=== PATIENT | female | born 1955 | race Caucasian/White ===

== ENCOUNTER → 2020-12-02 | Outpatient (CLI) | payer OTHER ==
[~2020-12-02] VITALS: Ht 167.6 cm; Wt 68.0 kg
[~2020-12-02] MED LIST: FLEXERIL PO; LOSARTAN POTASS50 MG PO; LYRICA 75 MG CA75 MG PO; TAPAZOLE10 MG PO; TRAMADOL 50 MG50 MG PO; ZOLOFT100 MG PO
[2020-12-02 10:39] VITALS: BP 158/95
--- NOTE | 2020-12-02 11:34 | NUR ---
Pain Clinic Assessment: 1. History of Osteoarthritis: KNEES History of Rheumatoid Arthritis: 2. Height: 5 ft. 6 in. 167.6 cm. Weight: 150.0 lb. oz. 68.040 kg. Patient's BMI: 24.2 3. Vital Signs: BP: 158/95 Pulse: 70 Resp: 14 Temp: 02 Sat: 100 ECG Mon: 4. Pain Intensity: 6 5. Fall Risk: Dizziness: N Needs help standing or walking: N Fallen in the last 3 months: N Fall risk comments: 6. Patient on Blood Thinner: None 7. History of Hypertension: N 8. Opioid Therapy greater than 6 weeks: Opiate Contract Signed: 9. Risk Assessment Tool Provided: 1 LOW RISK 10. Functional Assessment Tool: 11. Recreational Drug Use: Never Drug Type: Tobacco Use: Never Smoker Tobacco Type: Amount or Packs/day: How Many Years: Alcohol Use: Yes Frequency: Weekly Quant: 2
--- NOTE | 2020-12-02 13:39 | NUR ---
Spoke with Katie ARVIZU at Dr. Blanco's office [phone]. Informed that patient was started on Lyrica 75 mg & directions for use. Advised that Dr. Smith recommends Tramadol 50mg increased to 2 tabs TID. Pt will call in the AM regarding script. Pt will f/u with surgeon 12/10/20. Katie verbalized an understanding; advised dictation will follow.
--- NOTE | 2020-12-08 08:17 | HPC ---
[facility] [place] [address] PAIN MANAGEMENT CONSULTATION Name: SHANON ALLEN Linda Room #: REG [facility]#: [id number] Admission: 12/02/20 Attend Phys: Jose Smith DO Discharge: Date of : 51 Report #: [id number] THIS REPORT FOR: cc: Swathi Blanco MD FACS Physician not on staff Jose Smith DO ~ cc: Swathi Blanco MD DATE OF SERVICE: 12/02/2020 REFERRING PHYSICIAN: Swathi Blanco MD CHIEF COMPLAINT: Postoperative pain. HISTORY OF PRESENT ILLNESS: As you know, the patient is a 65-year-old female who has recently undergone abdominal wall reconstruction surgery with Dr. Blanco performed 11/19/2020, 13 days ago. The patient is continuing to experience ongoing pain related to the surgery. She is yet to even have her son removed, which is planned for actually next week. She was referred to our clinic as there was some concern that her use of medication may be inappropriate. Apparently, the patient had surgery a year ago to address similar issues. She had some difficulty with coming off of medications and having difficulty with ongoing pain. The patient was not started on any neuropathic medications prior to surgery to address any post-procedural pain and paresthesias related to peripheral nerve destruction and injury. She originally was given oxycodone per the patient's recollection, 5 mg dose for which she took the medication as directed. She states that she did not feel "normal on that medication and did not wish to continue the treatment", though according to the patient, she did complete the treatment process. Unfortunately, her symptoms continued. She sought evaluation through the surgery team as part of her reevaluation postoperative day 12 where she was given a prescription of tramadol 50 mg up to 3 times a day, but only given 20 tablets. She was complaining of ongoing pain issues and the general surgery team requested that the patient be seen by our clinic to provide some direction from analgesic standpoint and provide consultation and possible suggestions for further treatment to address ongoing symptoms. The patient was referred on to our clinic to discuss those options. The patient reports today her pain is continuous. She describes the pain as shooting, aching, sharp and tender. She is able to localize pain directly over the incision site and the area around the incision sites. There is also some deep pain, likely related to abdominal wall reconstruction. She indicates pain level of 7/10, daily average is 7-8/10, worst pain has been is 9-10/10. The patient indicates pain is exacerbated with bending over, getting in and out of bed or moving in any direction. Pain is improved with heat and cold compresses, ice and previous use of oxycodone. She has been referred to our service to provide a consultation recommendations for postoperative pain. [address] [address] PAIN MANAGEMENT CONSULTATION Name: TIFFANYSHANON D [facility] [id number] Admission: 12/02/20 Attend Phys: Jose Smith DO Discharge: Date of : 51 Report #: [id number] PAST MEDICAL HISTORY: 1. Hypertension. 2. Hypercholesterolemia. 3. Chronic headaches. 4. Urinary incontinence. 5. Chronic low back pain. 6. Thyroid disease. 7. Anxiety disorder. 8. Osteoarthritis. 9. Chronic myofascial pain. PAST SURGICAL HISTORY: 1. section 1979, repeat 1981, repeat 1983, cervical laminectomy 2004, hysterectomy partial 1999, herniorrhaphy 2017, herniorrhaphy 2018 and repeat in 10/2018. 2. Abdominal wall reconstruction 2019. 3. Abdominal wall reconstruction 2020. SOCIAL HISTORY: The patient is a former smoker, reporting that she quit years ago. Denies IV or illicit drug use. Admits to 1-2 alcohol beverages per week. She is retired, retired about 3 years ago. She is not receiving workmen's compensation nor is she trying to obtain disability benefits. Not in litigation in regards to pain, accompanied by her present in room today. REVIEW OF SYSTEMS: Positive for weight change, decrease in appetite, fatigue and weakness, frequent and recurrent headaches, wearing corrective eyewear, cataracts, loss of appetite, nausea, vomiting, abdominal pain secondary to surgery, frequent urination, incontinence or dribbling to urine, varicose veins, rash and itching, frequent and recurrent headaches, memory loss with confusion, depression, thyroid disease, excessive thirst and urination, heat and cold intolerance. All other review of systems negative per 12-point review of systems other than those listed in history of present illness. Pain impact score 51/70 indicating severe interference with daily activities secondary to pain. PQRS: The patient has arthritic changes known of the lumbar spine and knees. No rheumatoid arthritis. She is placing current pain score at 6/10. She is not a fall risk, does not have fall in last 3 months. She is not on blood thinners and is not treated for hypertension, though blood pressure is hypertensive today. She is on opioids for postoperative pain. She has a low opioid addiction potential based on assessment tool. Pain impact again is 51/70, severe interference of daily activities secondary to pain. PHYSICAL EXAMINATION: [facility] [address] [facility] [place] [address] PAIN MANAGEMENT CONSULTATION Name: SHANON ALLEN Room #: [facility]#: [id number] Admission: 12/02/20 Attend Phys: Jose Smith DO Discharge: Date of : 51 Report #: [id number] VITAL SIGNS: Blood pressure 158/95, pulse is 70, respiratory rate 14 and unlabored. The patient is 100% on room air. Height 5 feet 6 inches tall, weight 150 pounds, BMI calculated 24.2. GENERAL: Well-developed, well-nourished, well-hydrated 65-year-old female appearing stated age, pain is rated today at around 6/10. HEENT: Normocephalic, atraumatic. Pupils equal, round and responsive. She is wearing a mask in compliance with COVID-19 regulations. LUNGS: Appear clear. No wheeze or rhonchi. No rales. She is able to complete sentences without difficulty. No audible cough or wheezing. EXTREMITIES: Show no clubbing, no cyanosis and no edema. ABDOMEN: Soft, nondistended. There is tenderness to palpation around the post-surgical sites. [place] remain intact. There is some erythema around the surgical site. There are no rashes, lesions or ulcerations concerning of other etiologies. ASSESSMENT: 1. Postsurgical pain. 2. Pain secondary to abdominal wall reconstruction. PLAN: 1. Based on today's physical exam and history the patient has provided, the description the patient uses in regards to pain, it does appear she is suffering from post-surgical symptoms. She has pain that is more of a burning kind of sensation around the incision, which is consistent with peripheral nerve injury and irritation. She also has a surgical incision site pain, which is typical for abdominal wall reconstruction. The patient is only 13 days post-surgery and is continuing to experience symptoms of discomfort at a level of 6/10. She has yet to even have the son taken out of her incisions and this is causing some irritation as well. We have been requested by the general surgery team to evaluate the patient for appropriateness of treatment. It does appear based on the patient's report that she was on oxycodone post-surgery and this was providing some analgesic benefit, but patient reports that she was feeling "unusual" when she took the medication and did not feel she wanted to continue that therapy. She apparently followed up with surgery team on 12/01/2020 which generated the referral to our clinic to discuss appropriateness of treatment and whether or not we had some further suggestions for therapy. We have discussed with the patient over an hour of time today the options for treatment. The following was suggested as treatment course. 2. We discussed with the patient that patients that have had issues with post-surgical pain in the past, undergoing similar surgeries., we typically would start one on neuropathic medications such as amitriptyline, nortriptyline, Cymbalta or Lyrica. These tend to help reduce the postoperative pain and symptoms from peripheral nerve injury and irritation. Unfortunately, this was not initiated, which I believe is part of the contributing factor to the patient's symptoms. We would recommend starting a neuropathic medication. We recommend either gabapentin or Lyrica. The patient reports that she was on [facility] [address] [place] [address] PAIN MANAGEMENT CONSULTATION Name: SHANON ALLEN Room #: REG CLJuan Chang#: [id number] Admission: 12/02/20 Attend Phys: Jose Smith DO Discharge: Date of : 51 Report #: [id number] gabapentin in the past and believes she may have had some side effects. We will start the patient on Lyrica. We will initiate 75 mg dose p.o. at bedtime for 5 nights. If no improvement in symptoms, no side effects, then increase to 2 tabs p.o. at bedtime for 5 nights. If no improvement in symptoms, no side effects such as sleepiness, disorientation, confusion, mental slowing then she can initiate 1 tab in the morning, 2 tabs at night. I have sent a prescription of #90 tablets to her local pharmacy. She can initiate the therapy immediately. 3. The patient did have analgesic benefit with the oxycodone. She used that for the first 3-4 days once that had been completed. She did not wish to restart that therapy as she felt "funny on the medication." She was given tramadol 50 mg dose to utilize for pain control. She has taken 1 tablet today with minimal benefit. She states that the symptoms improved about 20-30%, lasting for a couple of hours. I do feel that tramadol is a viable treatment option for the patient, though I believe 50 mg p.r.n. will not be sufficient at controlling her current pain. She is only 13 days post-surgery and has a fairly significant reports of parasurgical site pain consistent with neuropathic origin and postsurgical pain specifically. She continues to have difficulty with the area around the son, which are also causing exacerbation of symptoms. With the tramadol, we would recommend that she increase to 2 tabs p.o. t.i.d. This could be continued for the next week or two, then reduce to 1 tab p.o. t.i.d. for a week or two and then can wean off the medication entirely. I did advise the patient that as she begins to improve, she should reduce the dosing on her own. She should not wait for reductions of dosing to be provided through the surgery team, but she could make these adjustments on her own. I do feel that her symptoms should improve considerably as she moves away from the surgical timeframe. 4. The patient will be following up with general surgery in regards to explantation of the son that remain and for postop evaluations. Adjustments can be made in the use of tramadol at those visits. We would recommend the increase of tramadol to be initiated today. She has tablets available to last for approximately 2 days. She will be following up with the general surgery team for refills of these therapies. We had discussed this with the referring team and they agreed that they would continue analgesic treatment as needed based on our recommendations. 5. I have advised the patient to contact our clinic if she is having difficulty with the Lyrica therapy, specifically the potential side effects with it including somnolence, decreased mental acuity, disorientation, confusion. If she is having no side effects, we will help adjust those medications as necessary. 6. We wish to thank Dr. Blanco for the referral of the patient to our clinic to help guide some of her postoperative care. I do not feel the patient needs to be on long-term medications. I would not recommend longer than another 3 weeks maximum of treatment dosing. This would be well beyond the typical timeframe for healing from this type of issue. This should help guide her treatment while we await her improvement physiologically. [address] [address] PAIN MANAGEMENT CONSULTATION Name: SHANON ALLEN Room #: REG CL Bernardo#: [id number] Admission: 12/02/20 Attend Phys: Jose Smith DO Discharge: Date of : 51 Report #: [id number] Again, we wish to thank you for the opportunity to see the patient in consultation. <ELECTRONICALLY SIGNED> By: Jose Smith DO 12/08/20 [id number] [id number] Jose Smith DO /nt
== END ==
LOC: PAIN 07:13
PROVIDERS: ATTEND Anesthesiology Pain Medicine
DX: G89.18 Other acute postprocedural pain (principal); R10.9 Unspecified abdominal pain; I10 Essential (primary) hypertension; E78.00 Pure hypercholesterolemia, unspecified